=== PATIENT | female | born 1965 | race Caucasian/White ===

== ENCOUNTER 2016-10-22 10:03 | Observation (INO) | payer OTHER ==
[~2016-10-22] VITALS: Ht 162.6 cm; Wt 68.0 kg
[~2016-10-22 10:03] MED LIST: ALBUAER19 INH; AMIT75TA2 PO; BUT/APAP/CAF PO; CHOL200010 PO; CIPR-255 PO; DRGTP25 TD; KLN1X PO; LAMO25TA PO; LPT/20 PO; OXYC1TAB3 PO; PRT/40 PO; TIZA2CAP PO; ZLF/100 PO
[2016-10-22 10:28] LABS: HEMATOCRIT 44.6 % (37-47); MEAN CELL VOLUME 91.6 fL (80-100); MEAN CORPUSCULAR HEMOGLOBIN 30.2 pg (25-34); MEAN PLATELET VOLUME 10.1 fL (7.4-10.4); PLATELET COUNT 232 K/uL (130-400); RED BLOOD COUNT 4.87 M/uL (4.2-5.4); WHITE BLOOD COUNT 8.15 K/uL (4.8-10.8)
[2016-10-22 10:38] LABS: PARTIAL THROMBOPLASTIN RATIO 1.1; PROTHROMBIN TIME (PATIENT) 10.9 SECONDS (9.0-12.0)
[2016-10-22] MEDS ORDERED: VNTHFA/IN INH (10:42)
[2016-10-22] MEDS ORDERED: RIZA10TA18 PO (10:42)
[2016-10-22] MEDS ORDERED: FNTTP25 TOP (10:42)
[2016-10-22] MEDS ORDERED: ACETAMINOPHEN 500 MG TAB PO STA (10:42)
[2016-10-22] MEDS ORDERED: BACL1TAB PO (10:42)
[2016-10-22 10:48] LABS: ALT/SGPT 19 U/L (12-78); AST/SGOT 19 U/L (15-37); BLOOD UREA NITROGEN 11 mg/dl (7-18); BUN/CREATININE RATIO 14.2 (10-20); CALCIUM 9.4 mg/dl (8.5-10.1); CARBON DIOXIDE 28 mmol/L (21-32); CHLORIDE 107 mmol/L (98-107); CREATININE 0.77 mg/dl (0.60-1.20); GLUCOSE 93 mg/dl (70-99); POTASSIUM 4.2 mmol/L (3.5-5.1); SODIUM 140 mmol/L (136-145)
[2016-10-22 10:52] LABS: ALB/GLOB RATIO 0.9 (0.9-2); ALKALINE PHOSPHATASE 123 U/L (45-117)
[2016-10-22] MEDS ORDERED: OXYCODONE HCL IR 5 MG TAB (IMMEDIATE RELEASE) PO STA (10:55)
--- NOTE | 2016-10-22 11:18 | DIAGNOSTIC IMAGING REPORT ---
SINGLE VIEW CHEST CLINICAL HISTORY: Atypical chest pain. FINDINGS: An AP, portable, upright chest radiograph is obtained compared to study dated to. The examination is degraded by portable technique and patient rotation. The heart is top normal for projection and there is atherosclerotic calcification of the thoracic aorta. Linear atelectasis is seen at the left lung base. No airspace consolidation is typical for pneumonia and there is no large pleural effusion. No pneumothorax is seen. The skeletal structures are osteopenic. The bony thorax is grossly intact. IMPRESSION: Linear atelectasis is present at the left lung base. The lungs are otherwise clear. Electronically signed by: Angel Millard M.D. 10/22/2016 10:58 AM Dictated Date/Time: 10/22/2016 10:55 AM
[2016-10-22] MEDS ORDERED: ALUMINUM/MAGNESIUM/SIMETH (MAALOX MAX) 30 ML UDC PO PRN (12:15)
[2016-10-22] MEDS ORDERED: ONDANSETRON INJ 2 MG/ML 2 ML VIAL IV PRN (12:15)
[2016-10-22] MEDS ORDERED: ALBUTEROL HFA 8 GM INHALER INH PRN (12:15)
[2016-10-22] MEDS ORDERED: RIZATRIPTAN BENZOATE 10 MG TAB PO PRN (12:15)
[2016-10-22] MEDS ORDERED: ACETAMINOPHEN 325 MG TAB PO PRN (12:15)
[2016-10-22] MEDS ORDERED: NITROGLYCERIN 0.4 MG SL PER TAB CHARGE SL PRN (12:15)
[2016-10-22] MEDS ORDERED: MoRPHine SULFATE 2 MG/ML CARP IV PRN (12:15)
[2016-10-22] MEDS ORDERED: MAGNESIUM HYDROXIDE SUSP 30 ML UDC PO PRN (12:15)
--- NOTE | 2016-10-22 12:27 | History and Physical ---
History & Physical Date & Time of Service: Oct 22, 2016 at 12:19 Chief Complaint: Chest Pain Primary Care Physician: Isa Garcia C.R.N.P History of Present Illness Source: patient, family 51-year-old female who presented to her physician's office for evaluation of left ankle pain, during the visit she was described chest pain which been present for a few days, worsened with activity, with risk factors of tobacco use dyslipidemia and postmenopausal state. An EKG in the family care doctor's office showed a minor change in the V leads and she was given nitroglycerin which produced a headache. She was referred to the emergency department by ambulance, she had no chest pain in the ER and EKG had now normalized. Her initial evaluation ER is unrevealing however her story is confounded by recent treatment for bronchitis with azithromycin. She however states that this chest discomfort although pleuritic does also occur at rest and was associated with diaphoresis, a feeling of a gas bubble, but not associated with radiation or particularly making her breathing worse. Past Medical/Surgical History Medical Problems: (1) Fibromyalgia Status: Chronic Surgical Problems: (1) S/P hysterectomy Status: Resolved (2) S/P tubal ligation Status: Resolved Family History Cancer Diabetes mellitus FH: atrial fibrillation FHx: gallbladder disease FHx: lung disease Hypertension Kidney disease Mitral valve prolapse Social History Smoking Status: Current Every Day Smoker Alcohol Use: none Drug Use: other (patient uses fentanyl patch) Marital Status: Housing status: lives with family Occupational Status: unemployed Immunizations History of Influenza Vaccine: Yes Influenza Vaccine Date: Mar 14, 2010 History of Tetanus Vaccine?: Yes Tetanus Immunization Date: Jun 14, 2004 History of Pneumococcal: No History of Hepatitis B Vaccine: Unknown Hepatitis Immunization Date: Mar 14, 2006 Multi-Drug Resistant Organisms History of MDRO: Yes Type of MDRO: MRSA Allergies Coded Allergies: Chlorhexidine (Verified Allergy, Intermediate, rash, 10/22/16) Gabapentin (Verified Allergy, Intermediate, SWELLS UP ALL OVER MANILY LEGS AND HANDS, 10/22/16) Topiramate (Verified Allergy, Intermediate, KIDNEY STONES, 10/22/16) Aspirin (Verified Allergy, Mild, HIVES, 10/22/16) Cephalexin (Verified Adverse Reaction, Mild, NAUSEA AND VOMITING, 10/22/16) Ibuprofen (Verified Adverse Reaction, Mild, DIARRHEA, 10/22/16) Metronidazole (Verified Adverse Reaction, Mild, VOMITING, 10/22/16) Home Medications Scheduled Albuterol Hfa (Ventolin Hfa), 2 PUFFS INH Q6H Amitriptyline Hcl (Elavil), 75 MG PO HS Atorvastatin (Atorvastatin Calcium), 20 MG PO QPM Baclofen (Lioresal), 10 MG PO BID Cholecalciferol (Vitamin D), 2,000 CAP PO QAM Clonazepam (Clonazepam), 1 MG PO HS Fentanyl (Fentanyl), 25 MCG TOP Q2D Pantoprazole (Pantoprazole Sodium), 40 MG PO QPM Sertraline HCl (Sertraline HCl), 250 MG PO HS Scheduled PRN Oxycodone Immediate Rel Tab (Roxicodone Ir), 10 MG PO TID PRN for Pain Miscellaneous Medications Rizatriptan Benzoate (Maxalt), 10 MG PO Review of Systems ROS: well nourished well developed NC/AT PERRL EOMI Sclera normal, she does have a headache which is likely from her nitroglycerin Neck no JVD, no adenopathy, trachea midline Car is regular without murmur Lungs are clear no focal air loss, no cough, no rub bed pain is worsened with deep breath Abd is soft non tender normal bowel sounds Extremity, no edema no cyanosis, her left ankle has pain in the mid foot after walking Skin no rash or lesions Neuro Alert and oriented X3 no focal loss of strength or sensation upper or lower extremity Psyche no anxiety or depression, but she is concerned about continuing her psych meds Physical Exam Vital Signs Date Time Temp Pulse Resp B/P (MAP) Pulse Ox O2 Delivery O2 Flow Rate FiO2 10/22/16 12:15 75 14 97 10/22/16 12:10 76 20 98 10/22/16 12:05 77 17 98 10/22/16 12:01 137/84 10/22/16 12:00 80 17 97 10/22/16 11:55 77 17 96 10/22/16 11:50 74 19 97 10/22/16 11:45 75 14 98 10/22/16 11:40 71 15 97 10/22/16 11:35 72 19 97 10/22/16 11:31 119/67 10/22/16 11:30 76 14 98 10/22/16 11:26 138/76 10/22/16 11:25 72 19 97 10/22/16 11:20 72 16 99 10/22/16 11:15 68 15 97 10/22/16 11:05 74 16 96 10/22/16 11:01 127/81 10/22/16 11:00 79 22 95 10/22/16 10:57 75 14 128/83 96 Room Air 10/22/16 10:34 90 10/22/16 10:11 96 Room Air 10/22/16 10:11 97 10/22/16 10:11 37.0 96 20 122/75 97 Room Air General Appearance: WD/WN, no apparent distress Head: normocephalic, atraumatic Eyes: PERRL, EOMI ENT: hearing grossly normal, pharynx normal Neck: supple, trachea midline Respiratory/Chest: chest non-tender, lungs clear, normal breath sounds, + pertinent finding (limited by discomfort) Cardiovascular: regular rate, rhythm, no murmur Abdomen/GI: normal bowel sounds, non tender, soft Back: normal inspection, no CVA tenderness Extremities/Musculoskelatal: no pedal edema, normal range of motion, + pertinent finding (evaluation of her left ankle reveals no instability joint effusion or focal point tenderness) Neurologic/Psych: alert, oriented x 3 Skin: normal color, warm/dry Diagnostics Laboratory Results Results Past 24 Hours Test 10/22/16 09:58 10/22/16 10:23 10/22/16 10:59 Range/Units White Blood Count 8.15 4.8-10.8 K/uL Red Blood Count 4.87 4.2-5.4 M/uL Hemoglobin 14.7 12.0-16.0 g/dL Hematocrit 44.6 37-47 % Mean Corpuscular Volume 91.6 80-100 fL Mean Corpuscular Hemoglobin 30.2 25-34 pg Mean Corpuscular Hemoglobin Concent 33.0 32-36 g/dl RDW Standard Deviation 44.9 36.4-46.3 fL RDW Coefficient of Variation 13.4 11.5-14.5 % Platelet Count 232 130-400 K/uL Mean Platelet Volume 10.1 7.4-10.4 fL Prothrombin Time 10.9 9.0-12.0 SECONDS Prothromb Time International Ratio 1.0 0.9-1.1 Activated Partial Thromboplast Time 27.9 21.0-31.0 SECONDS Partial Thromboplastin Ratio 1.1 Sodium Level 140 136-145 mmol/L Potassium Level 4.2 3.5-5.1 mmol/L Chloride Level 107 98-107 mmol/L Carbon Dioxide Level 28 21-32 mmol/L Anion Gap 5.0 3-11 mmol/L Blood Urea Nitrogen 11 7-18 mg/dl Creatinine 0.77 0.60-1.20 mg/dl Est Creatinine Clear Calc Drug Dose 82.0 ml/min Estimated GFR () 104.3 Estimated GFR (Non- 90.0 BUN/Creatinine Ratio 14.2 10-20 Random Glucose 93 70-99 mg/dl Calcium Level 9.4 8.5-10.1 mg/dl Total Bilirubin 0.2 0.2-1 mg/dl Aspartate Amino Transf (AST/SGOT) 19 15-37 U/L Alanine Aminotransferase (ALT/SGPT) 19 12-78 U/L Alkaline Phosphatase 123 45-117 U/L Total Creatine Kinase 66 26-192 U/L Creatine Kinase MB < 0.5 0.5-3.6 ng/ml Creatine Kinase MB Ratio 0-3.0 Total Protein 7.6 6.4-8.2 gm/dl Albumin 3.6 3.4-5.0 gm/dl Globulin 4.0 2.5-4.0 gm/dl Albumin/Globulin Ratio 0.9 0.9-2 Bedside Troponin I < 0.030 0-0.045 ng/ml Bedside D-Dimer 186 0-450 ng/mlFEU CXR normal Normal EKG (the EKG here is normal) Impression Assessment and Plan 51-year-old female with atypical chest pain and risk factors of tobacco use estrogen deficiency dyslipidemia Given some of the patient's symptoms are solution with diaphoresis. There is concern this could be coronary disease. We will pursue serial troponins, cardiac monitoring, and if negative a stress echocardiogram. Given the patient has an aspirin allergy we will choose to use Plavix as a substitute This could be pleuritic chest pain from her recent upper respiratory infection. Her d-dimer was negative which rules out pulmonary embolism Patient also has GERD and takes Protonix COPD/asthma we'll maintain her albuterol but may consider changing to Combivent in the future Anxiety/depression we will continue her sertraline at her dose of 250 although this is slightly higher than recommended, her clonazepam daily at bedtime For chronic pain she'll continue her fentanyl patch and or muscle relaxers with when necessary oxycodone use DVT prevention is heparin Patient is a full code Resuscitation Status FULL RESUSCITATION VTE Prophylaxis VTE Risk Assessment Done? Y/N: Yes Risk Level: Moderate Given or contraindicated: Unfractionated heparin SQ
[2016-10-22] MEDS ORDERED: IV FLUIDS COMPLETED PRN (12:30)
[2016-10-22] MEDS ORDERED: CLOPIDOGREL BISULFATE 75 MG TAB PO ONE (12:30)
[2016-10-22 14:30] VITALS: BP 120/72; PULSE 78; TEMP 36.6; O2SAT 97; Ht 162.6 cm; Wt 68.0 kg
[2016-10-22] MEDS: OXYCODONE HCL IR 5 MG TAB (IMMEDIATE RELEASE) PO PRN (14:57)
[2016-10-22 15:21] VITALS: BP 109/75; PULSE 77; TEMP 36.5; O2SAT 93
[2016-10-22] MEDS: CHECK FENTANYL PATCH PLACEMENT SCH (16:00)
--- NOTE | 2016-10-22 18:01 | EMERGENCY ROOM VISIT NOTE ---
History Report prepared by Shagufta: Shahnaz Lakhani Under the Supervision of: Dr. Solo Atkinson D.O. First contact with patient: 10:30 Chief Complaint: CARDIAC ASSESSMENT Stated Complaint: CHEST PAIN Nursing Triage Summary: Patient reports pain behind her left breast since Wednesday patient sent by pcp by ambulance for concerns on EKG at office. Patient has increased pain with deep breath. Patient recieved one nitro at Physician office with no relief, patient on arrival asking for pain medication for her headache. History of Present Illness The patient is a 51 year old female who presents to the Emergency Room with complaints of severe chest pain starting four days ago. The patient reports that she feels like there is an elephant sitting on her chest. She reports that she assumed the chest pain was from her cough that she has had and that it felt better when she lay down. She states that she went to her PCP today for something wrong with her feet. She reports that the PCP asked if anything else was wrong and she told them about her chest pain. She states that they performed an EKG that appeared abnormal and was sent here to the ED because of it. The patient notes that she is short of breath and has a headache. She denies nausea, vomiting, and swelling or pain in legs. She notes that she has never had issues with her heart before. Source of History: patient Onset: four days ago Position: chest Quality: other ("elephant sitting on chest") Modifying Factors (Relieving): other (laying down) Associated Symptoms: + headache, + cough, + SOB, No nausea, No vomiting Note: The patient denies swelling and pain in her legs. Review of Systems See HPI for pertinent positives & negatives. A total of 10 systems reviewed and were otherwise negative. Past Medical & Surgical Medical Problems: (1) Chest pain (2) Fibromyalgia Surgical Problems: (1) S/P hysterectomy (2) S/P tubal ligation Family History Cancer Diabetes mellitus FHx: gallbladder disease FHx: lung disease Hypertension Kidney disease Social History Smoking Status: Former Smoker Alcohol Use: none Marital Status: Housing Status: lives with family Occupation Status: unemployed Current/Historical Medications Scheduled Albuterol Hfa (Ventolin Hfa), 2 PUFFS INH Q6H Amitriptyline Hcl (Elavil), 75 MG PO HS Atorvastatin (Atorvastatin Calcium), 20 MG PO QPM Baclofen (Lioresal), 10 MG PO BID Cholecalciferol (Vitamin D), 2,000 CAP PO QAM Clonazepam (Clonazepam), 1 MG PO HS Fentanyl (Fentanyl), 25 MCG TOP Q2D Pantoprazole (Pantoprazole Sodium), 40 MG PO QPM Sertraline HCl (Sertraline HCl), 250 MG PO HS Scheduled PRN Oxycodone Immediate Rel Tab (Roxicodone Ir), 10 MG PO TID PRN for Pain Miscellaneous Medications Rizatriptan Benzoate (Maxalt), 10 MG PO Allergies Coded Allergies: Chlorhexidine (Verified Allergy, Intermediate, rash, 10/22/16) Gabapentin (Verified Allergy, Intermediate, SWELLS UP ALL OVER MANILY LEGS AND HANDS, 10/22/16) Topiramate (Verified Allergy, Intermediate, KIDNEY STONES, 10/22/16) Aspirin (Verified Allergy, Mild, HIVES, 10/22/16) Cephalexin (Verified Adverse Reaction, Mild, NAUSEA AND VOMITING, 10/22/16) Ibuprofen (Verified Adverse Reaction, Mild, DIARRHEA, 10/22/16) Metronidazole (Verified Adverse Reaction, Mild, VOMITING, 10/22/16) Physical Exam Vital Signs Date Time Temp Pulse Resp B/P (MAP) Pulse Ox O2 Delivery O2 Flow Rate FiO2 10/22/16 12:05 77 17 98 10/22/16 12:01 137/84 10/22/16 12:00 80 17 97 10/22/16 11:55 77 17 96 10/22/16 11:50 74 19 97 10/22/16 11:45 75 14 98 10/22/16 11:40 71 15 97 10/22/16 11:35 72 19 97 10/22/16 11:31 119/67 10/22/16 11:30 76 14 98 10/22/16 11:26 138/76 10/22/16 11:25 72 19 97 10/22/16 11:20 72 16 99 10/22/16 11:15 68 15 97 10/22/16 11:05 74 16 96 10/22/16 11:01 127/81 10/22/16 11:00 79 22 95 10/22/16 10:57 75 14 128/83 96 Room Air 10/22/16 10:34 90 10/22/16 10:11 96 Room Air 10/22/16 10:11 97 10/22/16 10:11 37.0 96 20 122/75 97 Room Air Physical Exam GENERAL: Patient is awake, alert, and in no acute distress. Patient is resting comfortably and showing no signs of anxiety EYES: The conjunctivae are clear. The pupils are round and reactive. EARS, NOSE, MOUTH AND THROAT: The nose is without any evidence of any deformity. Mucous membranes are moist tongue is midline NECK: The neck is nontender and supple. RESPIRATORY: Normal respiratory effort is noted there is no evidence of wheezing or rhonchi. Rakes at left base, no tachypnea or dyspnea noted. CARDIOVASCULAR: Regular rate and rhythm noted there no murmurs rubs or gallops normal S1 normal S2 GASTROINTESTINAL: The abdomen is soft. Bowel sounds are present in all quadrants. Abdomen is nontender MUSCULOSKELETAL/EXTREMITIES: There is no evidence of gross deformity full range of motion is noted in the hips and shoulders SKIN: There is no obvious evidence of any rash. There are no petechiae, pallor or cyanosis noted. NEUROLOGIC: Patient is awake alert and oriented x3 strength is symmetric patellar reflexes are 2+ bilaterally Medical Decision & Procedures ER Provider Diagnostic Interpretation: Radiology results as stated below per my review and radiologist interpretation: SINGLE VIEW CHEST CLINICAL HISTORY: Atypical chest pain. FINDINGS: An AP, portable, upright chest radiograph is obtained compared to study dated to. The examination is degraded by portable technique and patient rotation. The heart is top normal for projection and there is atherosclerotic calcification of the thoracic aorta. Linear atelectasis is seen at the left lung base. No airspace consolidation is typical for pneumonia and there is no large pleural effusion. No pneumothorax is seen. The skeletal structures are osteopenic. The bony thorax is grossly intact. IMPRESSION: Linear atelectasis is present at the left lung base. The lungs are otherwise clear. Electronically signed by: Angel Millard M.D. 10/22/2016 10:58 AM Dictated Date/Time: 10/22/2016 10:55 AM Laboratory Results 10/22/16 09:58 10/22/16 09:58 Test 10/22/16 09:58 10/22/16 10:23 10/22/16 10:59 Red Blood Count 4.87 M/uL (4.2-5.4) Mean Corpuscular Volume 91.6 fL (80-100) Mean Corpuscular Hemoglobin 30.2 pg (25-34) Mean Corpuscular Hemoglobin Concent 33.0 g/dl (32-36) RDW Standard Deviation 44.9 fL (36.4-46.3) RDW Coefficient of Variation 13.4 % (11.5-14.5) Mean Platelet Volume 10.1 fL (7.4-10.4) Prothrombin Time 10.9 SECONDS (9.0-12.0) Prothromb Time International Ratio 1.0 (0.9-1.1) Activated Partial Thromboplast Time 27.9 SECONDS (21.0-31.0) Partial Thromboplastin Ratio 1.1 Anion Gap 5.0 mmol/L (3-11) Est Creatinine Clear Calc Drug Dose 82.0 ml/min Estimated GFR () 104.3 Estimated GFR (Non- 90.0 BUN/Creatinine Ratio 14.2 (10-20) Calcium Level 9.4 mg/dl (8.5-10.1) Total Bilirubin 0.2 mg/dl (0.2-1) Aspartate Amino Transf (AST/SGOT) 19 U/L (15-37) Alanine Aminotransferase (ALT/SGPT) 19 U/L (12-78) Alkaline Phosphatase 123 U/L (45-117) Total Creatine Kinase 66 U/L (26-192) Creatine Kinase MB < 0.5 ng/ml (0.5-3.6) Creatine Kinase MB Ratio (0-3.0) Total Protein 7.6 gm/dl (6.4-8.2) Albumin 3.6 gm/dl (3.4-5.0) Globulin 4.0 gm/dl (2.5-4.0) Albumin/Globulin Ratio 0.9 (0.9-2) Bedside Troponin I < 0.030 ng/ml (0-0.045) Bedside D-Dimer 186 ng/mlFEU (0-450) Laboratory results per my review. Medications Administered Medications (Trade) Dose Ordered Sig/Julian Route Start Time Stop Time Status Last Admin Dose Admin Oxycodone HCl (Roxicodone Immediate Rel Tab) 10 mg NOW STAT PO 10/22/16 10:55 10/22/16 10:56 DC 10/22/16 11:06 10 MG ECG Indication: chest pain Rate (beats per minute): 82 Rhythm: normal sinus Findings: T-wave inversion (Anterior), no ectopy, other (No acute ST segments) Comparison ECG Date: July 17, 2014 Change: no significant change ED Course 1030: The patient was evaluated in room B10. A complete history and physical examination were performed. 1042: Ordered Tylenol Tab 1000 mg PO. 1055: Ordered Oxycodone HCl 10 mg PO. 1140: I discussed the patient's case with Dr. Chang. The patient will be evaluated for further management. Medical Decision Medication Reconciliation: I attest that I have personally reviewed the patient' s current medications list. .Blood pressure screening: Patient was found to have normal blood pressure on screening and does not require follow-up. Differential diagnosis: Etiologies such as cardiac ischemia, aortic dissection, pulmonary embolism, pneumonia, pneumothorax, musculoskeletal, infections, pericarditis, myocarditis , esophageal rupture, gastrointestinal, as well as others were entertained. The patient is a 51-year-old female who presented to emergency department for an evaluation of chest discomfort. Initially she was seen by her primary care physician and was found have an abnormal EKG. She was sent to the emergency department. The patient's EKG appeared similar to previous. Her initial cardiac biomarkers are negative. I discussed her case with the on-call [facility] hospitalist. They've agreed to evaluate the patient in the emergency department for further management and disposition. Consults Time Called: [phone] Consulting Physician: Dr. Chang Returned Call: 1140 I discussed the patient's case with Dr. Chang. The patient will be evaluated for further management. Impression Primary Impression: Chest pain Additional Impression: Abnormal EKG Scribe Attestation The scribe's documentation has been prepared under my direction and personally reviewed by me in its entirety. I confirm that the note above accurately reflects all work, treatment, procedures, and medical decision making performed by me. Departure Information Dispostion Being Evaluated By Hospitalist Referrals Isa Garcia C.R.N.P (PCP) Patient Instructions My [facility] Problem Qualifiers
[2016-10-22 19:36] VITALS: BP 118/76; PULSE 79; TEMP 36.7; O2SAT 97
[2016-10-22] MEDS ORDERED: SERTRALINE HCL 100 MG TAB PO SCH (21:00)
[2016-10-22] MEDS ORDERED: ATORVASTATIN 20 MG TAB PO SCH (21:00)
[2016-10-22] MEDS ORDERED: SERTRALINE HCL 50 MG TAB PO SCH (21:00)
[2016-10-22] MEDS ORDERED: AMITRIPTYLINE HCL 25 MG TAB PO SCH (21:00)
[2016-10-22] MEDS ORDERED: CLONAZEPAM 1 MG TAB PO SCH (21:00)
[2016-10-22] MEDS ORDERED: PANTOprazole SOD 40 MG TAB PO SCH (21:00)
[2016-10-22] MEDS: BACLOFEN 10 MG TAB PO SCH (21:21)
[2016-10-22] MEDS: HEPARIN SOD 5000 UNIT/0.5 ML CARP SQ SCH (21:22)
[2016-10-22 23:03] VITALS: BP 107/69; PULSE 68; TEMP 36.5; O2SAT 97
[2016-10-23] MEDS: CHECK FENTANYL PATCH PLACEMENT SCH ×2 (00:18→07:49)
[2016-10-23 02:58] LABS: BLOOD UREA NITROGEN 15 mg/dl (7-18); BUN/CREATININE RATIO 17.1 (10-20); CARBON DIOXIDE 28 mmol/L (21-32); CHLORIDE 110 mmol/L (98-107); CREATININE 0.87 mg/dl (0.60-1.20); GLUCOSE 103 mg/dl (70-99); POTASSIUM 3.8 mmol/L (3.5-5.1); SODIUM 144 mmol/L (136-145)
[2016-10-23 03:22] VITALS: BP 104/66; PULSE 60; TEMP 36.5; O2SAT 97
[2016-10-23 03:31] LABS: CALCIUM 9.1 mg/dl (8.5-10.1)
[2016-10-23 07:06] VITALS: BP 113/73; PULSE 67; TEMP 36.6; O2SAT 99
[2016-10-23] MEDS: BACLOFEN 10 MG TAB PO SCH (07:49)
[2016-10-23] MEDS: OXYCODONE HCL IR 5 MG TAB (IMMEDIATE RELEASE) PO PRN (08:00)
[2016-10-23] MEDS: HEPARIN SOD 5000 UNIT/0.5 ML CARP SQ SCH (08:00)
[2016-10-23] MEDS ORDERED: FENTANYL PATCH REMOVE & WASTE SCH (08:59)
[2016-10-23] MEDS ORDERED: CLOPIDOGREL BISULFATE 75 MG TAB PO SCH (09:00)
[2016-10-23] MEDS ORDERED: FENTANYL 25 MCG/HR TDSY TD SCH (09:00)
[2016-10-23] MEDS ORDERED: LAMO100T16 PO (10:46)
--- NOTE | 2016-10-23 10:49 | Discharge Instructions ---
Discharge Instructions Date of Service Oct 23, 2016. Admission Reason for Admission: Chest Pain Discharge Discharge Diagnosis / Problem: Chest pain, negative stress test Discharge Goals Goal(s): Decrease discomfort, Improve function Activity Recommendations Activity Limitations: resume your previous activity Lifting Limitations: none Exercise/Sports Limitations: as tolerated May Resume Sexual Activity: when tolerated Shower/Bathe: no limitations Driving or Machine Use: no limitations . Instructions / Follow-Up Instructions / Follow-Up Medications: no changes Chest pain - negative work up for heart attack (negative heart enzymes) and negative stress echocardiogram today D dimer normal thus ruling out possibility of blood clot symptoms most likely related to coughing with recent bronchitis FOLLOW UP - as needed with primary care physician, if chest pain persists can follow up Current Hospital Diet Patient's current hospital diet: Regular Diet Discharge Diet Recommended Diet: AHA Diet (Heart Healthy) Procedures Procedures Performed: Exercise stress echocardiogram - normal Pending Studies Studies pending at discharge: no Laboratory Results Last Resulted CBC 10/22/16 09:58 Medical Emergencies . Who to Call and When: Medical Emergencies: If at any time you feel your situation is an emergency, please call 911 immediately. . Non-Emergent Contact Non-Emergency issues call your: Primary Care Provider Call Non-Emergent contact if: your pain is not controlled, your pain is worsening, you have any medication questions . . "Provider Documentation" section prepared by Surendra Daniels. . VTE Core Measure Inpt VTE Proph given/why not?: Unfractionated heparin SQ [place] Drug Monitoring Program Search Results: no issues identified
[2016-10-23 10:55] VITALS: BP 113/73; PULSE 67; TEMP 36.6; O2SAT 99
[2016-10-23 11:27] VITALS: BP 131/78; PULSE 78; TEMP 36.6; O2SAT 95
--- NOTE | 2016-10-23 15:51 | DOBUTAMINE ECHO ---
*NOTICE TO RECEIVING [employer] This information is strictly Confidential and protected under [place] law. [place] law prohibits you from making any further disclosure of this information unless further disclosure is expressly permitted by the written consent of the person to whom it pertains or is authorized by law. A general authorization for the release of medical or other information is not sufficient for this purpose. Hospital accepts no responsibility if the information is made available to any other person, INCLUDING THE PATIENT. Interpretation Summary * Name: ANA WELSH Study Date: 10/23/2016 08:37 AM BP: 127/71 mmHg * Patient Location: C.2T\S\S232\S\1 HR: 67 * : 1965 (M/d/yyyy) Gender: Female Height: 64 in * Age: 51 yrs Ethnicity: CA Weight: 146 lb * Ordering Physician: Jeremiah Chang * Referring Physician: Isa Garcia * Performed By: Sheryl Mckinnon RDCS * * Reason For Study: CHEST PAIN * BSA: 1.7 m2 * -- Conclusions -- * 1. Normal stress echocardiogram at 7.1 Mets and a peak heart of 87% predicted maximum. * 2. No exercise-induced chest pain. * 3. No EKG changes. * 4. Baseline echocardiogram notes normal left ventricular systolic function without wall motion abnormalities. Procedure Details * ECHOEX, CPT #56802 Left Ventricle * The left ventricle is normal in size. * There is borderline concentric left ventricular hypertrophy. * Ejection Fraction = 55-60%. * Left ventricular systolic function is normal. * Resting wall motion: Normal. Stress wall motion: Appropriate increase in Left ventricular systolic function and decrease in cavity size. No stress induced segmental wall motion abnormalities. Right Ventricle * The right ventricle is grossly normal size. * The right ventricular systolic function is normal as assessed by tricuspid annular plane systolic excursion (TAPSE) (normal >1.5 cm). Atria * The left atrial size is normal. * Right atrial size is normal. * No ASD detected; PFO is not assessed. Mitral Valve * The mitral valve is normal in structure and function. * There is no mitral valve stenosis. * Significant mitral regurgitation is absent. Tricuspid Valve * The tricuspid valve is normal in structure and function. * There is no tricuspid stenosis. * Significant tricuspid regurgitation is absent. Aortic Valve * The aortic valve is normal in structure and function. * No hemodynamically significant valvular aortic stenosis. * No aortic regurgitation is present. Pulmonic Valve * The pulmonary valve is not well seen, but the Doppler examination is normal without significant regurgitation or stenosis. Great Vessels * The aortic root is normal size. Pericardium * There is no pericardial effusion. Stress Parameters * Normal baseline electrocardiogram. * Stress ECG: No ST changes. No arrhythmias. * The stress portion of this study was personally supervised by the undersigned interpreting physician. * Rest heart rate was '67' BPM. * Rest blood pressure was '127/71' * Maximum heart rate achieved was 148 bpm. * Maximum heart rate was 87 % of maximum age-predicted heart rate. * Maximum blood pressure was '169/83' * Total exercise time was '6:06' * Maximum exercise MET level achieved was '7.10' METS * Maximum treadmill speed was '3.40' miles per hour. * Maximum treadmill elevation was '14.00'% grade. * Exercise was terminated due to 'REACHING TARGET HR' MMode 2D Measurements and Calculations IVSd 1.0 cm IVSs 1.5 cm LVIDd 4.5 cm LVIDs 3.1 cm LVPWd 1.0 cm LVPWs 1.5 cm IVS/LVPW 1.0 FS 29.6 % EDV(Teich) 91.1 ml ESV(Teich) 39.3 ml EF(Teich) 56.8 % EDV(cubed) 89.4 ml ESV(cubed) 31.1 ml EF(cubed) 65.2 % % IVS thick 43.4 % % LVPW thick 48.0 % LV mass(C)d 158.4 grams LV mass(C)dI 92.6 grams/m\S\2 LV mass(C)s 168.4 grams LV mass(C)sI 98.4 grams/m\S\2 SV(Teich) 51.8 ml SI(Teich) 30.3 ml/m\S\2 SV(cubed) 58.3 ml SI(cubed) 34.1 ml/m\S\2 Ao root diam 3.2 cm Ao root area 7.8 cm\S\2 LA dimension 3.3 cm LA/Ao 1.0 LVAd ap4 27.0 cm\S\2 LVLd ap4 8.2 cm EDV(MOD-sp4) 74.4 ml LVAs ap4 15.8 cm\S\2 LVLs ap4 6.8 cm ESV(MOD-sp4) 31.8 ml EF(MOD-sp4) 57.3 % LVAd ap2 23.3 cm\S\2 LVLd ap2 7.4 cm EDV(MOD-sp2) 62.7 ml LVAs ap2 14.3 cm\S\2 LVLs ap2 6.4 cm ESV(MOD-sp2) 29.0 ml EF(MOD-sp2) 53.7 % SV(MOD-sp4) 42.6 ml SI(MOD-sp4) 24.9 ml/m\S\2 SV(MOD-sp2) 33.7 ml SI(MOD-sp2) 19.7 ml/m\S\2 Doppler Measurements and Calculations MV E max tessie 64.4 cm/sec MV A max tessie 48.3 cm/sec MV E/A 1.3 MV dec time 0.26 sec Ao V2 max 123.8 cm/sec Ao max PG 6.1 mmHg Ao max PG (full) 2.9 mmHg LV V1 max PG 3.3 mmHg LV V1 max 90.4 cm/sec TR max tessie 231.3 cm/sec
--- NOTE | 2016-10-24 07:10 | Discharge Summary ---
Discharge Summary Date of Service October 23, 2016. Discharge Summary Admission Date: Oct 22, 2016 at 12:08 Discharge Date: Oct 23, 2016 Discharge Disposition: Home Principal Diagnosis: Chest pain, non-cardiac Problems/Secondary Diagnoses: Asthma Anxiety Depression Immunizations: Have You Had Influenza Vaccine: Yes Influenza Vaccine Date: Mar 14, 2010 History of Tetanus Vaccine?: Yes Tetanus Immunization Date: Jun 14, 2004 History of Pneumococcal: No History of Hepatitis B Vaccine: Unknown Hepatitis Immunization Date: Mar 14, 2006 Procedures: Exercise stress echocardiogram Consultations: none Medication Reconciliation New Medications: Lamotrigine (Lamictal) 100 Mg Tab 100 MG PO BID for 30 Days, #60 TAB Continued Medications: Albuterol Hfa (Ventolin Hfa) 200 Puffs/71778 Mcg Aers 2 PUFFS INH Q6H, #1 INHALER Amitriptyline Hcl (Elavil) 75 Mg Tab 75 MG PO HS, TAB Atorvastatin (Atorvastatin Calcium) 20 Mg Tab 20 MG PO QPM, #90 Baclofen (Lioresal) 10 Mg Tab 10 MG PO BID, TAB Cholecalciferol (Vitamin D) 2,000 Unit Cap 2000 CAP PO QAM Clonazepam (Clonazepam) 1 Mg Tab 1 MG PO HS, #60 Fentanyl (Fentanyl) 25 Mcg Tdsy 25 MCG TOP Q2D Oxycodone Immediate Rel Tab (Roxicodone Ir) 5 Mg Tab 10 MG PO TID PRN for Pain, TAB Pantoprazole (Pantoprazole Sodium) 40 Mg Tab 40 MG PO QPM, #30 Rizatriptan Benzoate (Maxalt) 10 Mg Tab 10 MG PO, TAB Sertraline HCl (Sertraline HCl) 100 Mg Tab 250 MG PO HS, #90 Discharge Exam Patient was feeling much better in the morning prior to her stress test, no chest pain or pressure, no dyspnea. Her exercise stress echocardiogram was negative for ischemia. Discussed her symptoms of chest tightness the prior week. They improved with albuterol, suggested that it was more likely bronchospasm related to her asthma. She felt ready to go home. Review of Systems: Constitutional: No fever, No chills, No sweats, No weight loss, No weakness , No fatigue, No problem reported Eyes: No worsening of vision, No eye pain, No redness, No discharge, No diplopia, No problem reported Respiratory: No cough, No sputum, No wheezing, No shortness of breath, No dyspnea on exertion, No dyspnea at rest, No hemoptysis, No problem reported Cardiovascular: No chest pain, No orthopnea, No PND, No edema, No claudication, No palpitations, No problem reported Abdomen: No pain, No nausea, No vomiting, No diarrhea, No constipation, No GI bleeding, No problem reported Musculoskeletal: No joint pain, No muscle pain, No swelling, No calf pain, No problem reported Genitourinary - Female: No dysuria, No urinary frequency, No urinary urgency , No urinary incontinence, No urinary retention, No hematuria Neurologic: No memory loss, No paralysis, No weakness, No numbness/tingling , No vertigo, No balance problems, No problem reported Psychiatric: No depression symptoms, No anhedonism, No anxiety, No insomnia , No substance abuse, No problem reported Endocrine: No fatigue, No excessive thirst, No excessive urination, No problem reported Hematologic / Lymphatic: No abnormal bleeding/bruising, No clotting problems , No swollen lymph nodes, No night sweats, No problem reported Integumentary: No rash, No itch, No new/changing skin lesions, No color change, No bleeding, No problem reported Physical Exam: General Appearance: WD/WN, no apparent distress Eyes: normal inspection, EOMI, sclerae normal ENT: normal ENT inspection, hearing grossly normal, pharynx normal Neck: supple, no adenopathy, no JVD, trachea midline Respiratory/Chest: chest non-tender, lungs clear, normal breath sounds, no respiratory distress, no accessory muscle use Cardiovascular: regular rate, rhythm, no edema, no gallop, no JVD, no murmur , normal peripheral pulses Abdomen / GI: normal bowel sounds, non tender, soft, no organomegaly Extremities: normal inspection, no calf tenderness, normal capillary refill , no pedal edema, normal range of motion 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, no motor/sensory deficits , alert, normal mood/affect, normal reflexes, oriented x 3 Skin: normal color, warm/dry, no rash Hospital Course 51-year-old female with atypical chest pain and risk factors of tobacco use estrogen deficiency dyslipidemia - Chest pain and tightness: no symptoms while admitted, her troponin was negative x 3 exercise stress echocardiogram was normal discussed her symptoms, sounded more like some chest tightness associated with asthma, they occurred outside in her garden, improved with albuterol COPD/asthma: continue Albuterol PRN, can follow up with PCP Anxiety/depression we will continue her sertraline at her dose of 250mg, her clonazepam daily at bedtime For chronic pain she'll continue her fentanyl patch and or muscle relaxers with when necessary oxycodone use Total Time Spent: Greater than 30 minutes This includes examination of the patient, discharge planning, medication reconciliation, and communication with other providers. Discharge Instructions Please refer to the electronic Patient Visit Report (Discharge Instructions) for additional information. Follow-Up as needed with PCP Additional Copies To Isa Garcia C.R.N.P
== END 2016-10-23 12:17 | disposition home or self-care (01) ==
LOC: EDBD 10:03 → C.EDB 10:04 → C.2T 12:08 → ENRESERV 12:39
PROVIDERS: ADMIT Internal Medicine; ATTEND Internal Medicine
DX: R07.89 Other chest pain (principal); R94.31 Abnormal electrocardiogram [ECG] [EKG]; J45.909 Unspecified asthma, uncomplicated; F41.8 Other specified anxiety disorders; Z90.710 Acquired absence of both cervix and uterus; Z98.51 Tubal ligation status; Z87.891 Personal history of nicotine dependence; Z79.899 Other long term (current) drug therapy; Z80.3 Family history of malignant neoplasm of breast; Z83.3 Family history of diabetes mellitus; Z82.49 Family history of ischemic heart disease and other diseases of the circulatory system; Z84.1 Family history of disorders of kidney and ureter

== ENCOUNTER 2017-02-06 20:48 | Emergency (ER) | payer OTHER ==
[~2017-02-06] VITALS: Ht 162.6 cm; Wt 70.9 kg
[~2017-02-06 20:48] MED LIST changes: -ALBUAER19 INH; +BACL1TAB PO; -BUT/APAP/CAF PO; -CIPR-255 PO; -DRGTP25 TD; +FNTTP25 TOP; -LAMO25TA PO; +RIZA10TA18 PO; -TIZA2CAP PO; +VNTHFA/IN INH
[2017-02-06 20:50] VITALS: Ht 162.6 cm; Wt 70.9 kg
[2017-02-06] MEDS ORDERED: ONDANSETRON INJ 2 MG/ML 2 ML VIAL IV STA (21:05)
[2017-02-06] MEDS ORDERED: MoRPHine SULFATE 4 MG/ML 1 ML CARP\\VIAL IV STA ×2 (21:05→22:12)
[2017-02-06 21:27] LABS: BASO % 0.5 %; BASO ABS # 0.06 K/uL (0-0.2); COMPLETE YES; EOS % 4.5 %; HEMATOCRIT 41.5 % (37-47); IG% 0.4 %; LYMPH % 29.9 %; MEAN CELL VOLUME 91.8 fL (80-100); MEAN CORPUSCULAR HEMOGLOBIN 30.1 pg (25-34); MEAN CORPUSCULAR HGB CONC 32.8 g/dl (32-36); MEAN PLATELET VOLUME 9.9 fL (7.4-10.4); MONO % 10.7 %; PLATELET COUNT 224 K/uL (130-400); RED BLOOD COUNT 4.52 M/uL (4.2-5.4); WHITE BLOOD COUNT 11.36 K/uL (4.8-10.8)
[2017-02-06] MEDS ORDERED: AMT/50 PO (21:38)
[2017-02-06] MEDS ORDERED: LAMO1TAB21 PO (21:38)
--- NOTE | 2017-02-06 21:38 | DIAGNOSTIC IMAGING REPORT ---
SINGLE VIEW CHEST CLINICAL HISTORY: Atypical chest pain. FINDINGS: An AP, portable, upright chest radiograph is compared to study dated 10/22/2016. The examination is degraded by portable technique and patient rotation. The cardiomediastinal silhouette is unremarkable. Platelike atelectasis is seen at both lung bases. The lungs and pleural spaces are otherwise clear. No pneumothorax is seen. The bony thorax is grossly intact. IMPRESSION: No acute cardiopulmonary abnormality. Electronically signed by: Angel Millard M.D. 02/06/2017 9:37 PM Dictated Date/Time: 02/06/2017 9:37 PM
[2017-02-06 21:42] LABS: INR 0.9 (0.9-1.1); PROTHROMBIN TIME (PATIENT) 9.7 SECONDS (9.0-12.0)
[2017-02-06 21:45] LABS: POINT OF CARE TROPONIN I < 0.030 ng/ml (0-0.045)
[2017-02-06 21:47] LABS: ALT/SGPT 25 U/L (12-78); BLOOD UREA NITROGEN 8 mg/dl (7-18); BUN/CREATININE RATIO 9.4 (10-20); CALCIUM 9.1 mg/dl (8.5-10.1); CARBON DIOXIDE 28 mmol/L (21-32); CHLORIDE 108 mmol/L (98-107); CREATININE 0.89 mg/dl (0.60-1.20); GLUCOSE 102 mg/dl (70-99); SODIUM 141 mmol/L (136-145)
[2017-02-06 21:52] LABS: ALKALINE PHOSPHATASE 145 U/L (45-117); AST/SGOT 19 U/L (15-37); CKMB/CK RATIO 1.2 (0-3.0)
--- NOTE | 2017-02-06 21:52 | EMERGENCY ROOM VISIT NOTE ---
History Report prepared by Shagufta: Patty Thomas Under the Supervision of: Dr. Seferino Andrade M.D. First contact with patient: 20:57 Chief Complaint: CHEST PAIN Stated Complaint: LEFT CHEST PAIN, INDIGESTION History of Present Illness The patient is a 51 year old female who presents to the Emergency Room with complaints of persistent left sided chest pain starting tonight. The patient has had brief episodes of chest pain every 3-4 days for the past month. Today the pain is persistent. It goes through to her back. She describes the pain as sharp and shooting. The pain worsens with breathing. She has had a cough. She denies any rash, abdominal pain, leg pain, leg swelling, or fever. She had a negative stress echo in September. She has a history of fibromyalgia which does not usually give her chest pain. She denies any straining or heavy lifting. She is not on any blood thinners. Source of History: patient Onset: tonight Position: chest (left) Quality: sharp, other (shooting) Timing: other (persistent) Modifying Factors (Worsening): breathing Associated Symptoms: + cough, + back pain, No fevers, No abdominal pain, No rash Note: Pt denies leg pain/swelling. Review of Systems See HPI for pertinent positives & negatives. A total of 10 systems reviewed and were otherwise negative. Past Medical & Surgical Medical Problems: (1) Chest pain (2) Fibromyalgia Surgical Problems: (1) S/P hysterectomy (2) S/P tubal ligation Old medical records were reviewed. Nurse's notes were reviewed and I agree with. Family History Cancer Diabetes mellitus FH: atrial fibrillation FHx: gallbladder disease FHx: lung disease Hypertension Kidney disease Mitral valve prolapse Social History Smoking Status: Current Every Day Smoker Alcohol Use: none Drug Use: other Marital Status: Housing Status: lives with family Occupation Status: unemployed Current/Historical Medications Scheduled Amitriptyline HCl (Amitriptyline HCl), 50 MG PO DAILY Atorvastatin (Atorvastatin Calcium), 20 MG PO QPM Baclofen (Lioresal), 10 MG PO BID Cholecalciferol (Vitamin D), 2,000 CAP PO QAM Clonazepam (Clonazepam), 1 MG PO HS Fentanyl (Fentanyl), 25 MCG TOP Q2D Lamotrigine (Lamotrigine), 100 MG PO BID Pantoprazole (Pantoprazole Sodium), 40 MG PO QPM Sertraline HCl (Sertraline HCl), 250 MG PO HS Scheduled PRN Albuterol Hfa (Ventolin Hfa), 2 PUFFS INH Q6H PRN for SOB/Wheezing Oxycodone Immediate Rel Tab (Roxicodone Ir), 10 MG PO TID PRN for Pain Miscellaneous Medications Rizatriptan Benzoate (Maxalt), 10 MG PO Allergies Coded Allergies: Chlorhexidine (Verified Allergy, Intermediate, rash, 10/22/16) Gabapentin (Verified Allergy, Intermediate, SWELLS UP ALL OVER MANILY LEGS AND HANDS, 10/22/16) Topiramate (Verified Allergy, Intermediate, KIDNEY STONES, 10/22/16) Aspirin (Verified Allergy, Mild, HIVES, 10/22/16) Cephalexin (Verified Adverse Reaction, Mild, NAUSEA AND VOMITING, 10/22/16) Ibuprofen (Verified Adverse Reaction, Mild, DIARRHEA, 10/22/16) Metronidazole (Verified Adverse Reaction, Mild, VOMITING, 10/22/16) Physical Exam Vital Signs Date Time Temp Pulse Resp B/P (MAP) Pulse Ox O2 Delivery O2 Flow Rate FiO2 02/06/17 22:22 36.7 80 18 145/77 95 Room Air 02/06/17 21:42 86 18 134/78 95 Room Air 02/06/17 21:29 95 Room Air 02/06/17 21:11 82 02/06/17 20:50 36.9 96 18 136/88 97 Room Air Physical Exam General: Non-ill appearing middle age female in no acute distress. HEENT: Normal cephalic atraumatic. Pupils are equal round and reactive to light. Extraocular movements are intact. Oropharynx is pink with moist mucous membranes. No swelling of the mouth lips or tongue. Neck: Supple with a midline trachea. No meningeal signs or stiffness, no JVD or bruits. No Stridor. Chest: Clear to auscultation bilaterally. No wheezes or rhonchi. No increased work of breathing. Reproducible tenderness to the left anterior chest, no rash. Heart: regular rate and rhythm. Abdomen: Soft nontender, nondistended without rebound guarding or rigidity. Extremities: No cyanosis clubbing or edema. No calf tenderness or assymetry Spine/Back. Non tender to palpation. No CVA tenderness Skin: Good turgor without rashes. Neurologic exam: Cranial nerves two through 12 are intact. Motor and sensation are intact and symmetrical throughout. Medical Decision & Procedures ER Provider Diagnostic Interpretation: X-ray results as stated below per interpretation by me and the radiologist: SINGLE VIEW CHEST CLINICAL HISTORY: Atypical chest pain. FINDINGS: An AP, portable, upright chest radiograph is compared to study dated 10/22/2016. The examination is degraded by portable technique and patient rotation. The cardiomediastinal silhouette is unremarkable. Platelike atelectasis is seen at both lung bases. The lungs and pleural spaces are otherwise clear. No pneumothorax is seen. The bony thorax is grossly intact. IMPRESSION: No acute cardiopulmonary abnormality. Electronically signed by: Angel Millard M.D. 02/06/2017 9:37 PM Dictated Date/Time: 02/06/2017 9:37 PM Laboratory Results 02/06/17 21:16 Red Blood Count 4.52, Mean Corpuscular Volume 91.8, Mean Corpuscular Hemoglobin 30.1, Mean Corpuscular Hemoglobin Concent 32.8, Mean Platelet Volume 9.9, Neutrophils (%) (Auto) 54.0, Lymphocytes (%) (Auto) 29.9, Monocytes (%) (Auto) 10.7, Eosinophils (%) (Auto) 4.5, Basophils (%) (Auto) 0.5, Neutrophils # (Auto ) 6.14, Lymphocytes # (Auto) 3.40, Monocytes # (Auto) 1.21, Eosinophils # (Auto ) 0.51, Basophils # (Auto) 0.06 02/06/17 21:16 Test 02/06/17 21:16 02/06/17 21:26 White Blood Count 11.36 K/uL (4.8-10.8) Red Blood Count 4.52 M/uL (4.2-5.4) Hemoglobin 13.6 g/dL (12.0-16.0) Hematocrit 41.5 % (37-47) Mean Corpuscular Volume 91.8 fL (80-100) Mean Corpuscular Hemoglobin 30.1 pg (25-34) Mean Corpuscular Hemoglobin Concent 32.8 g/dl (32-36) Platelet Count 224 K/uL (130-400) Mean Platelet Volume 9.9 fL (7.4-10.4) Neutrophils (%) (Auto) 54.0 % Lymphocytes (%) (Auto) 29.9 % Monocytes (%) (Auto) 10.7 % Eosinophils (%) (Auto) 4.5 % Basophils (%) (Auto) 0.5 % Neutrophils # (Auto) 6.14 K/uL (1.4-6.5) Lymphocytes # (Auto) 3.40 K/uL (1.2-3.4) Monocytes # (Auto) 1.21 K/uL (0.11-0.59) Eosinophils # (Auto) 0.51 K/uL (0-0.5) Basophils # (Auto) 0.06 K/uL (0-0.2) RDW Standard Deviation 46.5 fL (36.4-46.3) RDW Coefficient of Variation 13.8 % (11.5-14.5) Immature Granulocyte % (Auto) 0.4 % Immature Granulocyte # (Auto) 0.04 K/uL (0.00-0.02) Prothrombin Time 9.7 SECONDS (9.0-12.0) Prothromb Time International Ratio 0.9 (0.9-1.1) Activated Partial Thromboplast Time 25.4 SECONDS (21.0-31.0) Partial Thromboplastin Ratio 1.0 Anion Gap 5.0 mmol/L (3-11) Est Creatinine Clear Calc Drug Dose 73.1 ml/min Estimated GFR () 87.6 Estimated GFR (Non- 75.6 BUN/Creatinine Ratio 9.4 (10-20) Calcium Level 9.1 mg/dl (8.5-10.1) Total Bilirubin 0.2 mg/dl (0.2-1) Direct Bilirubin < 0.1 mg/dl (0-0.2) Aspartate Amino Transf (AST/SGOT) 19 U/L (15-37) Alanine Aminotransferase (ALT/SGPT) 25 U/L (12-78) Alkaline Phosphatase 145 U/L (45-117) Total Creatine Kinase 59 U/L (26-192) Creatine Kinase MB 0.7 ng/ml (0.5-3.6) Creatine Kinase MB Ratio 1.2 (0-3.0) Total Protein 7.2 gm/dl (6.4-8.2) Albumin 3.6 gm/dl (3.4-5.0) Lipase 211 U/L (73-393) Bedside D-Dimer 258 ng/mlFEU (0-450) Bedside Troponin I < 0.030 ng/ml (0-0.045) Laboratory studies as stated above per my review. Medications Administered Medications (Trade) Dose Ordered Sig/Julian Route Start Time Stop Time Status Last Admin Dose Admin Ondansetron HCl (Zofran Inj) 4 mg NOW STAT IV 02/06/17 21:05 02/06/17 21:07 DC 02/06/17 21:21 4 MG Morphine Sulfate (MoRPHine SULFATE INJ) 4 mg NOW STAT IV 02/06/17 21:05 02/06/17 21:07 DC 02/06/17 21:22 4 MG Morphine Sulfate (MoRPHine SULFATE INJ) 4 mg NOW STAT IV 02/06/17 22:12 02/06/17 22:13 DC 02/06/17 22:21 4 MG ECG Indication: chest pain Rate (beats per minute): 88 Rhythm: normal sinus Findings: no acute ischemic change, no ectopy, other (poor baseline, low voltage) Comparison ECG Date: 23-Oct-2016 Change: no significant change ED Course 2100: Past medical records reviewed. The patient was evaluated in room B3B, and a complete history and physical examination were performed. 2104: Morphine Sulfate 4 mg IV, Zofran Inj 4 mg IV. 2206: Upon reevaluation, the patient is feeling better. I discussed the results and treatment plan with her. She verbalized agreement of the treatment plan. The patient was discharged home. 2211: Morphine Sulfate 4 mg IV. Medical Decision Differentials include, but are not limited to; ACS, arrhythmia, PE, pneumonia, costochondritis, pneumothorax, fibromyalgia. This patient comes in as described above. She was placed in room B3. She's having chest pain that is left-sided. It is reproducible. She's been having this off and on for several months. She had a negative stress test at the end of September. IV access was established and she was given morphine 4 mg IV and Zofran 4 mg IV for pain and nausea management. Multiple blood testing was obtained. Chest x-ray does not show any findings to suggest congestive heart failure, pneumonia, or pneumothorax. EKG does not show any definite acute ischemic changes. Troponin is negative. D-dimer is negative and in the low pretest probably setting makes PE highly unlikely. The pain is definitely reproducible. She feels a lot better after having the morphine she was given additional dose of IV morphine. She is on fentanyl patches as well as oral narcotics at home which she can continue and she takes is for chronic pain in her back. She has no acute electrolyte or metabolic abnormalities. I think this is more of a costochondritis is is definitely reproducible. She will be discharged home. She'll return if : increasing pain, worsening of symptoms, fever or chills, any new problems or concerns. She is happy with plan and discharged to home. Medication Reconcilliation Current Medication List: was personally reviewed by me Blood Pressure Screening Patient's blood pressure: Normal blood pressure Blood pressure disposition: Did not require urgent referral Impression Primary Impression: Left sided chest pain Additional Impression: Costochondritis Scribe Attestation The scribe's documentation has been prepared under my direction and personally reviewed by me in its entirety. I confirm that the note above accurately reflects all work, treatment, procedures, and medical decision making performed by me. Departure Information Dispostion Home / Self-Care Referrals Isa Garcia, C.R.N.P (PCP) Forms Call Back Authorization, HOME CARE DOCUMENTATION FORM, IMPORTANT VISIT INFORMATION Patient Instructions My [facility] Additional Instructions Rest. Drink plenty of fluids. Continue current pain medications Use Aleve if you can take it. Do not exceed the [id number] recommended dosages Return if: Worsening of symptoms, shortness of breath, increasing pain, fever or chills, any new problems or concerns. Follow-up with your doctor Wednesday for recheck Problem Qualifiers
[2017-02-06 22:22] VITALS: BP 145/77; PULSE 80; TEMP 36.7; O2SAT 95
== END 2017-02-06 22:27 | disposition home or self-care (01) ==
LOC: C.EDB 20:49
DX: R07.9 Chest pain, unspecified (principal); M94.0 Chondrocostal junction syndrome [Tietze]; M79.7 Fibromyalgia; E11.9 Type 2 diabetes mellitus without complications; Z82.49 Family history of ischemic heart disease and other diseases of the circulatory system; F17.200 Nicotine dependence, unspecified, uncomplicated

== ENCOUNTER → 2017-02-17 | Outpatient (CLI) | payer OTHER ==
[~2017-02-17] MED LIST changes: -AMIT75TA2 PO; +AMT/50 PO; +LAMO1TAB21 PO; +PANT40TA2 PO; -PRT/40 PO
[2017-02-17 13:46] LABS: LYME DISEASE AB IGG NEG (NEG)
[2017-02-17 13:47] LABS: LYME DISEASE AB IGM NEG (NEG)
[2017-02-17 13:58] LABS: BLOOD UREA NITROGEN 15 mg/dl (7-18); BUN/CREATININE RATIO 17.8 (10-20); CALCIUM 9.4 mg/dl (8.5-10.1); CARBON DIOXIDE 26 mmol/L (21-32); CHLORIDE 108 mmol/L (98-107); CHOLESTEROL 244 mg/dl (0-200); CREATININE 0.85 mg/dl (0.60-1.20); GLUCOSE 93 mg/dl (70-99); POTASSIUM 4.1 mmol/L (3.5-5.1); SODIUM 141 mmol/L (136-145); TRIGLYCERIDES 155 mg/dl (0-150); VERY LOW DENSITY LIPOPROT CALC 31 mg/dl
[2017-02-17 14:09] LABS: HDL CHOLESTEROL 61 mg/dl; LDL CHOLESTEROL CALCULATED 152 mg/dl
== END | disposition home or self-care (01) ==
LOC: C.LABPVFM 09:56
PROVIDERS: ATTEND Nurse Practitioner
DX: E55.9 Vitamin D deficiency, unspecified (principal); R20.0 Anesthesia of skin; R63.5 Abnormal weight gain; M79.1 Myalgia; M79.669 Pain in unspecified lower leg; R53.83 Other fatigue; E78.5 Hyperlipidemia, unspecified

== ENCOUNTER 2017-07-02 18:31 | Emergency (ER) | payer OTHER ==
[~2017-07-02] VITALS: Ht 162.6 cm; Wt 70.0 kg
[~2017-07-02 18:31] MED LIST changes: -LAMO1TAB21 PO; -LPT/20 PO; +LPT20 PO
[2017-07-02 18:33] VITALS: TEMP 37.1; Ht 162.6 cm; Wt 70.0 kg
[2017-07-02] MEDS ORDERED: SODIUM CHLORIDE 0.9% 1000ML 1,000 ML IV STA (19:00)
[2017-07-02] MEDS ORDERED: DiphenhydrAMINE HCL 50 MG/ML VIAL IV STA (19:00)
[2017-07-02] MEDS ORDERED: ACETAMINOPHEN IV 1,000 MG in EMPTY BAG 0 ML IV STA (19:00)
[2017-07-02] MEDS ORDERED: PROCHLORPERAZINE 5 MG/ML 2 ML VIAL IV STA (19:00)
--- NOTE | 2017-07-02 19:13 | EMERGENCY ROOM VISIT NOTE ---
History Report prepared by Shagufta: Ancelmo Yang Under the Supervision of: Dr. Cleopatra Alfredo D.O. First contact with patient: 18:40 Chief Complaint: NEURO SYMPTOMS Stated Complaint: RT SIDE NUMBNESS, NECK PAIN, SEVERE MIGRAINE Nursing Triage Summary: patient with severe head ache and numbness and tingling of the right side. with right sided weaknss and falls today. History of Present Illness The patient is a 51 year old female who presents to the Emergency Room with complaints of constant right sided numbness and weakness which began today at 1100. The patient reports feeling very groggy when she woke up this morning, after which she went back to sleep. She notes that she went back to sleep and woke up again at 1100 when she began to feel right sided numbness in her arm and leg. The patient reports that she fell three times secondary to her numbness and weakness. Denies injury, stating the first episode was a slow collapse without injury and the other ones her caught her. She notes that her symptoms began just prior to her first fall, and did not resolve between episodes. They are however improved when laying down. The patient states that she developed neck pain and a pounding headache after her right sided weakness and numbness began. The patient reports that she currently experiences a tingling sensation on her right side when laying down, but numbness on her right side while standing. She also notes being less sensitive to touch on her right side. The patient reports having a history of migraines, but does not feel that her present symptoms are related to a migraine. She notes that her migraines are generally localize to the back of her head, however , this pain is mainly confined to the top of her head. She also notes that her migraines typically last for several days. The patient reports that she takes Maxalt and Clonidine to suppress her migraine symptoms. The patient notes a history of pinched nerves in her neck and back, but states that she has never experienced numbness like this in the past. She states that her numbness generally only arises when she overexerts herself, however, she notes that even this numbness is nowhere close to as severe as her present symptoms. The patient reports experiencing chills throughout the day today and also notes experiencing resolve right sided facial weakness several days ago. She denies any stomach pain, recent illness, history of diabetes, history of hypertension, change in her bowel movements, or falls prior to today. The patient reports that she has had several MRIs conducted in the past which revealed concerns for multiple sclerosis. Following her MRI the patient had a spinal tap performed which came back negative for multiple sclerosis. The patient notes that she recently had her medications changed from amitriptyline to Cymbalta. She also notes that she uses a fentanyl patch and oxycodone for sinclair management. Source of History: patient Onset: Today at 1100 Position: arm (right), leg (right) Quality: numbness (and weakness) Timing: constant Modifying Factors (Worsening): other (standing) Modifying Factors (Relieving): rest Associated Symptoms: + chills, + headache, + neck pain, + fatigue, No abdominal pain Note: Associated Symptoms: Falling, tingling while lying down, Denies: Recent illness, history of diabetes, history of hypertension, change in bowel movements, falls prior to today. Review of Systems See HPI for pertinent positives & negatives. A total of 10 systems reviewed and were otherwise negative. Past Medical & Surgical Medical Problems: (1) Chest pain (2) Fibromyalgia Surgical Problems: (1) S/P hysterectomy (2) S/P tubal ligation Family History Cancer Diabetes mellitus FH: atrial fibrillation FHx: gallbladder disease FHx: lung disease Hypertension Kidney disease Mitral valve prolapse Social History Smoking Status: Current Every Day Smoker Alcohol Use: none Drug Use: other Marital Status: Housing Status: lives with family Occupation Status: unemployed Current/Historical Medications Scheduled Atorvastatin (Lipitor), 20 MG PO QPM Baclofen (Lioresal), 10 MG PO BID Cholecalciferol (Vitamin D), 2,000 INTER.UNIT PO QAM Clonazepam (Clonazepam), 1 MG PO HS Duloxetine HCl (Duloxetine HCl), 30 MG PO DAILY Fentanyl (Fentanyl), 25 MCG TOP [id number] Lamotrigine (Lamotrigine), 100 MG PO BID Pantoprazole (Pantoprazole Sodium), 40 MG PO QPM Sertraline HCl (Sertraline HCl), 250 MG PO HS Scheduled PRN Albuterol Hfa (Ventolin Hfa), 2 PUFFS INH Q6H PRN for SOB/Wheezing Oxycodone Hcl (Oxycodone Hcl), 10 MG PO QID PRN for Pain Rizatriptan Benzoate (Rizatriptan Benzoate), 10 MG PO UD PRN for Migraine Allergies Coded Allergies: Chlorhexidine (Verified Allergy, Intermediate, rash, 10/22/16) Gabapentin (Verified Allergy, Intermediate, SWELLS UP ALL OVER MANILY LEGS AND HANDS, 10/22/16) Topiramate (Verified Allergy, Intermediate, KIDNEY STONES, 10/22/16) Aspirin (Verified Allergy, Mild, HIVES, 10/22/16) Cephalexin (Verified Adverse Reaction, Mild, NAUSEA AND VOMITING, 10/22/16) Ibuprofen (Verified Adverse Reaction, Mild, DIARRHEA, 10/22/16) Metronidazole (Verified Adverse Reaction, Mild, VOMITING, 10/22/16) Physical Exam Vital Signs Date Time Temp Pulse Resp B/P (MAP) Pulse Ox O2 Delivery O2 Flow Rate FiO2 07/02/17 23:30 60 18 111/71 98 07/02/17 22:44 66 18 97 Room Air 07/02/17 21:05 88 18 118/68 96 Room Air 07/02/17 18:33 37.1 84 20 156/95 98 Room Air Physical Exam GENERAL: alert, well appearing, well nourished, no distress, non-toxic EYE EXAM: normal conjunctiva, PERRL and EOM's grossly intact OROPHARYNX: no exudate, no erythema, lips, buccal mucosa, and tongue normal and mucous membranes are moist NECK: supple, no nuchal rigidity, no adenopathy, non-tender LUNGS: Clear to auscultation. Normal chest wall mechanics. Decreased breath sounds, no wheezes, rhonchi, or rales. HEART: no murmurs, S1 normal and S2 normal ABDOMEN: abdomen soft, non-tender, normo-active bowel sounds, no masses, no rebound or guarding. BACK: Back is symmetrical on inspection and there is no deformity, no midline tenderness, no CVA tenderness. SKIN: no rashes and no bruising UPPER EXTREMITIES: upper extremities are grossly normal. LOWER EXTREMITIES: No pitting edema. NEURO EXAM: Subjective sensory alteration to right upper extremity and right lower extremity. No pronator drift. Could not complete finger to nose. Slight ataxia noted on both upper and lower. Decreased strength right upper extremity. Medical Decision & Procedures ER Provider Diagnostic Interpretation: Radiology results have been interpreted by the radiologist and reviewed by me. CHEST ONE VIEW PORTABLE CLINICAL HISTORY: Stroke like symptoms COMPARISON STUDY: 02/06/2017 FINDINGS: The heart is at the upper limits of normal in size. There is no failure. There is no focal pulmonary consolidation. There are no pleural effusions.[ IMPRESSION: No active disease in the chest. Electronically signed by: Cristopher Hernández M.D. 07/02/2017 7:23 PM Dictated Date/Time: 07/02/2017 7:23 PM MRI CERVICAL WITHOUT CONTRAST CLINICAL HISTORY: Neck pain and right-sided paresthesias TECHNIQUE: Sagittal and axial T1, T2 and STIR images were obtained. COMPARISON STUDY: March 2014 There are no suspicious areas of marrow replacement. No intrinsic cervical cord lesions are visualized. C2-3: There is no evidence of disc bulge or focal herniation. There is no spinal or foraminal stenosis. C3-4: There is a minimal circumferential disc bulge. There is no significant spinal or foraminal stenosis C4-5: There is a minimal circumferential disc bulge. There is no significant spinal or foraminal stenosis C5-6 :There is a minimal circumferential disc bulge. There is no significant spinal or foraminal stenosis C6-7: There is a minor circumferential disc bulge. There is no significant spinal or foraminal stenosis C7-T1: There is no evidence of disc bulge or focal herniation. There is no evidence of spinal or foraminal stenosis. IMPRESSION: 1. No significant change from the prior study 2. Minor multilevel disc bulges. No evidence of significant spinal or foraminal stenosis 3. No cord abnormalities identified Electronically signed by: Cristopher Hernández M.D. 07/02/2017 9:12 PM Dictated Date/Time: 07/02/2017 9:09 PM MRI OF THE BRAIN WITHOUT CONTRAST CLINICAL HISTORY: Headache, right-sided paresthesias, weakness, neck pain. COMPARISON STUDY: June 2013 FINDINGS: Sagittal T1, axial diffusion, proton density and T2 weighted axial, coronal FLAIR, and axial T1-weighted images were acquired. No intra or extra-axial mass lesions are visualized Axial diffusion-weighted images reveal no evidence of acute or subacute infarction. There is no evidence of ventricular dilatation. Proton density T2-weighted and FLAIR images reveal multiple foci of abnormal increased T2 and FLAIR signal within the white matter. These are greater than expected for age, and raise the possibility of age accelerated small vessel ischemic disease, vasculitis, or demyelinating disease. There are no abnormal flow voids. IMPRESSION: 1. No acute intracranial findings 2. No evidence of acute or subacute infarction 3. Persistent foci of abnormal increased T2 and FLAIR signal within the white matter, greater than expected for age. This again raises the possibility of age accelerated small vessel ischemic disease, vasculitis, or demyelinating disease. Electronically signed by: Cristopher Hernández M.D. 07/02/2017 8:44 PM Dictated Date/Time: 07/02/2017 8:40 PM Laboratory Results 07/02/17 19:15 Red Blood Count 4.38, Mean Corpuscular Volume 91.1, Mean Corpuscular Hemoglobin 31.1, Mean Corpuscular Hemoglobin Concent 34.1, Mean Platelet Volume 10.2, Neutrophils (%) (Auto) 50.1, Lymphocytes (%) (Auto) 33.1, Monocytes (%) (Auto) 11.9, Eosinophils (%) (Auto) 4.0, Basophils (%) (Auto) 0.8, Neutrophils # (Auto ) 3.96, Lymphocytes # (Auto) 2.62, Monocytes # (Auto) 0.94, Eosinophils # (Auto ) 0.32, Basophils # (Auto) 0.06 07/02/17 19:15 Test 07/02/17 19:15 White Blood Count 7.91 K/uL (4.8-10.8) Red Blood Count 4.38 M/uL (4.2-5.4) Hemoglobin 13.6 g/dL (12.0-16.0) Hematocrit 39.9 % (37-47) Mean Corpuscular Volume 91.1 fL (80-100) Mean Corpuscular Hemoglobin 31.1 pg (25-34) Mean Corpuscular Hemoglobin Concent 34.1 g/dl (32-36) Platelet Count 199 K/uL (130-400) Mean Platelet Volume 10.2 fL (7.4-10.4) Neutrophils (%) (Auto) 50.1 % Lymphocytes (%) (Auto) 33.1 % Monocytes (%) (Auto) 11.9 % Eosinophils (%) (Auto) 4.0 % Basophils (%) (Auto) 0.8 % Neutrophils # (Auto) 3.96 K/uL (1.4-6.5) Lymphocytes # (Auto) 2.62 K/uL (1.2-3.4) Monocytes # (Auto) 0.94 K/uL (0.11-0.59) Eosinophils # (Auto) 0.32 K/uL (0-0.5) Basophils # (Auto) 0.06 K/uL (0-0.2) RDW Standard Deviation 44.3 fL (36.4-46.3) RDW Coefficient of Variation 13.3 % (11.5-14.5) Immature Granulocyte % (Auto) 0.1 % Immature Granulocyte # (Auto) 0.01 K/uL (0.00-0.02) Prothrombin Time 10.4 SECONDS (9.0-12.0) Prothromb Time International Ratio 1.0 (0.9-1.1) Anion Gap 4.0 mmol/L (3-11) Est Creatinine Clear Calc Drug Dose 77.9 ml/min Estimated GFR () 95.3 Estimated GFR (Non- 82.2 BUN/Creatinine Ratio 11.7 (10-20) Calcium Level 8.7 mg/dl (8.5-10.1) Magnesium Level 2.2 mg/dl (1.8-2.4) Total Bilirubin 0.2 mg/dl (0.2-1) Aspartate Amino Transf (AST/SGOT) 13 U/L (15-37) Alanine Aminotransferase (ALT/SGPT) 15 U/L (12-78) Alkaline Phosphatase 110 U/L (45-117) Troponin I < 0.015 ng/ml (0-0.045) Total Protein 6.9 gm/dl (6.4-8.2) Albumin 3.6 gm/dl (3.4-5.0) Globulin 3.3 gm/dl (2.5-4.0) Albumin/Globulin Ratio 1.1 (0.9-2) Lyme Disease IgG Antibody NEG (NEG) Lyme Disease IgM Antibody NEG (NEG) Laboratory results per my review. Medications Administered Medications (Trade) Dose Ordered Sig/Julian Route Start Time Stop Time Status Last Admin Dose Admin Sodium Chloride 1,000 ml @ 999 mls/hr Q1H1M STAT IV 07/02/17 19:00 07/02/17 20:00 DC 07/02/17 19:26 999 MLS/HR Prochlorperazine Edisylate (Compazine Inj) 5 mg NOW STAT IV 07/02/17 19:00 07/02/17 19:12 DC 07/02/17 19:26 5 MG Diphenhydramine HCl (Benadryl Inj) 25 mg NOW STAT IV 07/02/17 19:00 07/02/17 19:12 DC 07/02/17 19:26 25 MG Dexamethasone Sodium Phosphate (Decadron Inj) 10 mg NOW STAT IV 07/02/17 21:32 07/02/17 21:33 DC 07/02/17 21:51 10 MG Lorazepam (Ativan Inj) 1 mg NOW STAT IV 07/02/17 21:32 07/02/17 21:33 DC 07/02/17 21:51 1 MG Sertraline HCl (Zoloft Tab) 250 mg NOW STAT PO 07/02/17 22:05 07/02/17 22:09 DC 07/02/17 22:22 250 MG Baclofen (Lioresal Tab) 10 mg NOW STAT PO 07/02/17 22:05 07/02/17 22:09 DC 07/02/17 22:21 10 MG Lamotrigine (Lamictal Tab) 100 mg NOW STAT PO 07/02/17 22:05 07/02/17 22:09 DC 07/02/17 22:21 100 MG Oxycodone HCl (Roxicodone Immediate Rel Tab) 10 mg NOW STAT PO 07/02/17 22:05 07/02/17 22:09 DC 07/02/17 22:21 10 MG ECG Per My Interpretation Indication: weakness Rate (beats per minute): 70 Rhythm: normal sinus Findings: RBBB (incomplete), no acute ischemic change, no ectopy, other ( normal axis, normal intervals) ED Course 1844: The patient was evaluated in room B4. A complete history and physical exam was performed. 1899: Ordered Acetaminophen 100ml @ 400mls/hr, Benadryl Inj 25mg IV, Compazine Inj 5mg IV, and Sodium Chloride 1000 ml @ 999 mls/hr IV. 2009: Patient states headache is only slightly improved and still present, however neck and back pain are improved. 2131: Ordered Ativan Inj 1 mg IV, and Decadron Inj 10 mg IV. 2199: Patient concerned about missing her nighttime medications. Patient states feeling markedly improved except for residual headache. Patient would like to go home and sleep. No back pain, no neck pain, normal neuro exam at this time, mild residual photophobia. 2204: Ordered Oxycodone HCl 10mg PO, Lamictal Tab 100mg PO, Lioresal Tab 10 mg PO, and Zoloft Tab 250 mg PO. Medical Decision Differential diagnosis: Etiologies such as migraine headache, meningitis, sinusitis, CO exposure, ICH, SAH, infection, tumor, headache, sinus thrombosis, arterial dissection, as well as others were entertained. Patient with paresthesias and slight weakness for 8 hours by time of presentation here. NIH stroke score less than 4 and outside window for any acute intervention. I had a low suspicion for stroke despite patient's risk factors. I think given history of peripheral nerve impingement, neck and back problems, as well as migraines, more likely be related to a complex migraine, or peripheral nerve impingement related to symptoms. Discussed imaging with radiology prior to ordering to discuss my differential diagnosis and patient presentation. Imaging here reassuring. Patient felt improved following medications. Back pain gone, no residual paresthesias or weakness, neck pain improved, and headache improved although still present. Patient able to ambulate here with a steady gait and did not require assistance. Patient does have a neurologist whom she follows with a advised close follow-up with him. Advised continued use of her routine medications. I do not suspect other vascular etiology including dissection. No symptoms to otherwise suggest acute spinal emergency including cauda equina, epidural abscess or epidural hematoma. Headache was gradual in onset, not the worst headache of her life, no accompanying fevers or other infectious etiology, so I do not feel patient warranted lumbar puncture to rule out subarachnoid hemorrhage or meningitis. Patient and family aware of her results, verbalized understanding, were agreeable with plan, and comfortable plan for discharge. All questions answered at bedside. Labs otherwise reassuring, I do not suspect other occult infectious etiology or cardiac etiology. I do not suspect occult traumatic injury related to the subsequent falls from her numbness and weakness today. Medication Reconcilliation Current Medication List: was personally reviewed by me Blood Pressure Screening Patient's blood pressure: Normal blood pressure Impression Primary Impression: Paresthesia Additional Impressions: Neck pain Headache Scribe Attestation The scribe's documentation has been prepared under my direction and personally reviewed by me in its entirety. I confirm that the note above accurately reflects all work, treatment, procedures, and medical decision making performed by me. Departure Information Dispostion Home / Self-Care Referrals Isa Garcia C.R.N.P (PCP) Forms HOME CARE DOCUMENTATION FORM, IMPORTANT VISIT INFORMATION, WORK / SCHOOL INSTRUCTIONS Patient Instructions My [facility] Additional Instructions Please call and follow-up with your neurologist. Please continue your regular medications as prescribed. If you have any worsening symptoms, atypical headaches, recurrent numbness or weakness, recurrent fall, or you have any other new concerns, please return to the emergency room. Problem Qualifiers Additional Impressions: Headache Headache type: unspecified Headache chronicity pattern: episodic headache Intractability: not intractable Qualified Codes: R51 - Headache
--- NOTE | 2017-07-02 19:25 | DIAGNOSTIC IMAGING REPORT ---
CHEST ONE VIEW PORTABLE CLINICAL HISTORY: Stroke like symptoms COMPARISON STUDY: 02/06/2017 FINDINGS: The heart is at the upper limits of normal in size. There is no failure. There is no focal pulmonary consolidation. There are no pleural effusions.[ IMPRESSION: No active disease in the chest. Electronically signed by: Cristopher Hernández M.D. 07/02/2017 7:23 PM Dictated Date/Time: 07/02/2017 7:23 PM
[2017-07-02 19:36] LABS: BASO % 0.8 %; BASO ABS # 0.06 K/uL (0-0.2); EOS ABS # 0.32 K/uL (0-0.5); HEMATOCRIT 39.9 % (37-47); HEMOGLOBIN 13.6 g/dL (12.0-16.0); IG# 0.01 K/uL (0.00-0.02); LYMPH % 33.1 %; LYMPH ABS # 2.62 K/uL (1.2-3.4); MEAN CELL VOLUME 91.1 fL (80-100); MEAN CORPUSCULAR HEMOGLOBIN 31.1 pg (25-34); MEAN CORPUSCULAR HGB CONC 34.1 g/dl (32-36); MEAN PLATELET VOLUME 10.2 fL (7.4-10.4); MONO % 11.9 %; MONO ABS # 0.94 K/uL (0.11-0.59); NEUT % 50.1 %; NEUT ABS # 3.96 K/uL (1.4-6.5); PLATELET COUNT 199 K/uL (130-400); RED CELL DISTRIBUTION WIDTH CV 13.3 % (11.5-14.5); RED CELL DISTRIBUTION WIDTH SD 44.3 fL (36.4-46.3); WHITE BLOOD COUNT 7.91 K/uL (4.8-10.8)
[2017-07-02 19:53] LABS: ALBUMIN 3.6 gm/dl (3.4-5.0); ALT/SGPT 15 U/L (12-78); BLOOD UREA NITROGEN 10 mg/dl (7-18); CALCIUM 8.7 mg/dl (8.5-10.1); CARBON DIOXIDE 29 mmol/L (21-32); CREATININE 0.83 mg/dl (0.60-1.20); GLUCOSE 93 mg/dl (70-99); POTASSIUM 3.5 mmol/L (3.5-5.1); SODIUM 140 mmol/L (136-145)
[2017-07-02 19:58] LABS: ALKALINE PHOSPHATASE 110 U/L (45-117); AST/SGOT 13 U/L (15-37); TOTAL PROTEIN 6.9 gm/dl (6.4-8.2)
--- NOTE | 2017-07-02 20:45 | DIAGNOSTIC IMAGING REPORT ---
MRI OF THE BRAIN WITHOUT CONTRAST CLINICAL HISTORY: Headache, right-sided paresthesias, weakness, neck pain. COMPARISON STUDY: June 2013 FINDINGS: Sagittal T1, axial diffusion, proton density and T2 weighted axial, coronal FLAIR, and axial T1-weighted images were acquired. No intra or extra-axial mass lesions are visualized Axial diffusion-weighted images reveal no evidence of acute or subacute infarction. There is no evidence of ventricular dilatation. Proton density T2-weighted and FLAIR images reveal multiple foci of abnormal increased T2 and FLAIR signal within the white matter. These are greater than expected for age, and raise the possibility of age accelerated small vessel ischemic disease, vasculitis, or demyelinating disease. There are no abnormal flow voids. IMPRESSION: 1. No acute intracranial findings 2. No evidence of acute or subacute infarction 3. Persistent foci of abnormal increased T2 and FLAIR signal within the white matter, greater than expected for age. This again raises the possibility of age accelerated small vessel ischemic disease, vasculitis, or demyelinating disease. Electronically signed by: Cristopher Hernández M.D. 07/02/2017 8:44 PM Dictated Date/Time: 07/02/2017 8:40 PM
--- NOTE | 2017-07-02 21:14 | DIAGNOSTIC IMAGING REPORT ---
MRI CERVICAL WITHOUT CONTRAST CLINICAL HISTORY: Neck pain and right-sided paresthesias TECHNIQUE: Sagittal and axial T1, T2 and STIR images were obtained. COMPARISON STUDY: March 2014 There are no suspicious areas of marrow replacement. No intrinsic cervical cord lesions are visualized. C2-3: There is no evidence of disc bulge or focal herniation. There is no spinal or foraminal stenosis. C3-4: There is a minimal circumferential disc bulge. There is no significant spinal or foraminal stenosis C4-5: There is a minimal circumferential disc bulge. There is no significant spinal or foraminal stenosis C5-6 :There is a minimal circumferential disc bulge. There is no significant spinal or foraminal stenosis C6-7: There is a minor circumferential disc bulge. There is no significant spinal or foraminal stenosis C7-T1: There is no evidence of disc bulge or focal herniation. There is no evidence of spinal or foraminal stenosis. IMPRESSION: 1. No significant change from the prior study 2. Minor multilevel disc bulges. No evidence of significant spinal or foraminal stenosis 3. No cord abnormalities identified Electronically signed by: Cristopher Hernández M.D. 07/02/2017 9:12 PM Dictated Date/Time: 07/02/2017 9:09 PM
[2017-07-02] MEDS ORDERED: DEXAMETHASONE SOD INJ 4 MG/ML VIAL IV STA (21:32)
[2017-07-02] MEDS ORDERED: LORAZEPAM 2 MG/ML 1 ML VIAL IV STA (21:32)
[2017-07-02] MEDS ORDERED: LAMO1TAB21 PO (21:38)
[2017-07-02] MEDS ORDERED: OXYC-164 PO (21:53)
[2017-07-02] MEDS ORDERED: ATOR-22 PO (21:53)
[2017-07-02] MEDS ORDERED: CYM30 PO (21:53)
[2017-07-02] MEDS ORDERED: RIZA10TA21 PO (21:53)
[2017-07-02] MEDS ORDERED: SERTRALINE HCL 100 MG TAB PO STA (22:05)
[2017-07-02] MEDS ORDERED: BACLOFEN 10 MG TAB PO STA (22:05)
[2017-07-02] MEDS ORDERED: OXYCODONE HCL IR 5 MG TAB (IMMEDIATE RELEASE) PO STA (22:05)
[2017-07-02 23:30] VITALS: BP 111/71; PULSE 60; O2SAT 98
== END 2017-07-02 23:30 | disposition home or self-care (01) ==
LOC: C.EDB 18:32
DX: R20.2 Paresthesia of skin (principal); M54.2 Cervicalgia; R51 Headache; M79.7 Fibromyalgia; F17.200 Nicotine dependence, unspecified, uncomplicated; Z90.710 Acquired absence of both cervix and uterus; Z98.51 Tubal ligation status; Z83.3 Family history of diabetes mellitus; Z82.49 Family history of ischemic heart disease and other diseases of the circulatory system; Z88.8 Allergy status to other drugs, medicaments and biological substances; Z88.6 Allergy status to analgesic agent; Z88.1 Allergy status to other antibiotic agents; I45.10 Unspecified right bundle-branch block

== ENCOUNTER → 2017-07-12 | Outpatient (CLI) | payer OTHER ==
[~2017-07-12] MED LIST changes: -AMT/50 PO; +ATOR-22 PO; +CYM30 PO; +LAMO1TAB21 PO; -LPT20 PO; +OXYC-164 PO; -OXYC1TAB3 PO; -RIZA10TA18 PO; +RIZA10TA21 PO
--- NOTE | 2017-07-12 14:30 | DIAGNOSTIC IMAGING REPORT ---
LUMBAR SPINE 5 VIEWS HISTORY: Back pain. COMPARISON: Lumbar spine 07/05/2014. FINDINGS: There is no fracture. No subluxation. Mild disc space narrowing at L3-L4 with small endplate osteophytes. There is also mild disc space narrowing L5-S1. This is similar to the prior study. IMPRESSION: No fracture or subluxation within the lumbar spine. Mild degenerative disc disease at L3-L4 and L5-S1. Electronically signed by: Danis Casas M.D. 07/12/2017 2:29 PM Dictated Date/Time: 07/12/2017 2:24 PM
--- NOTE | 2017-07-12 14:31 | DIAGNOSTIC IMAGING REPORT ---
C-SPINE ROUTINE 4 OR 5 VIEWS HISTORY: Pain. Neuropathy. Carpal tunnel syndrome COMPARISON: 07/05/2014 FINDINGS: The cervical spine is visualized from C1 through the superior endplate of T1. There is no fracture. The subluxation produces described is no longer apparent. Findings of degenerative disc change C5-C6 with posterior osteophytic formation. Moderate degenerative disc change C5-C6. Prevertebral soft tissues and the atlantodens interval are intact. IMPRESSION: 1. Moderate degenerative disc change C5-C6 with a subluxation previously described no longer apparent. Alignment is anatomic. The above report was generated using voice recognition software. It may contain grammatical, syntax or spelling errors. Electronically signed by: Keron Shannon M.D. 07/12/2017 2:29 PM Dictated Date/Time: 07/12/2017 2:28 PM
== END | disposition home or self-care (01) ==
LOC: C.RADPV 13:53
PROVIDERS: ATTEND Psychiatry & Neurology Neurology
DX: G56.00 Carpal tunnel syndrome, unspecified upper limb (principal)

== ENCOUNTER → 2017-08-20 | Day surgery (SDC) | payer OTHER ==
[2017-08-20] VITALS (10 sets, daily range): BP systolic 90–130; BP diastolic 50–80; PULSE 60–84; TEMP 36.7–37.3; O2SAT 94–96; Ht 162.6 cm; Wt 69.0 kg
[~2017-08-20] VITALS: Ht 162.6 cm; Wt 69.0 kg
[~2017-08-20] MED LIST changes: +ACETAMINOPHEN 500 MG TAB PO PRN; +DIAZEPAM 5MG TAB ONE; +FENTANYL CITRATE INJ 50 MCG/1 ML 2 ML VIAL ONE; +LIDOCAINE HCL 2% 2 ML VIAL (20MG/ML) ONE; +MIDAZOLAM HCL 1 MG/ML 2ML VIAL ONE; +NURSING VERBAL MED ORDER ONE; +PROPOFOL IV EMULSION 10 MG/ML 20 ML VIAL IV ONE
--- NOTE | 2017-08-20 10:58 | Discharge Instructions ---
Discharge Instructions Procedure Procedure Date: Aug 20, 2017. Reason for visit: *W/Opening Pressure* Demyelinating Disorder. Discharge Discharge Date: Aug 20, 2017. Discharge Diagnosis: SAME Instructions Activity Recommendations: No limitations, 1 Day-May resume regular activity Recommended Home Diet: Resume Previous Diet Provider Instructions: ACTIVITY RECOMMENDATIONS: * Rest today. * Resume regular activity in one day. MEDICATIONS: * May take Tylenol or Ibuprofen as needed for pain. DIET: * Resume previous diet. SPECIAL CARE INSTRUCTIONS: Call your doctor if: * Temperature above 101 degrees F. * Pain not relieved by pain medicine ordered. * Increased drainage or redness from incision. * Notify your doctor with any questions or concerns. Call your doctor or go to the nearest Emergency Department if you experience: * Increased chest pain or shortness of breath. FOLLOW UP VISIT: Follow-up with Referring Physician as scheduled. Allergies Coded Allergies: Chlorhexidine (Verified Allergy, Intermediate, rash, 08/20/17) Gabapentin (Verified Allergy, Intermediate, SWELLS UP ALL OVER MANILY LEGS AND HANDS, 08/20/17) Topiramate (Verified Allergy, Intermediate, KIDNEY STONES, 08/20/17) Aspirin (Verified Allergy, Mild, HIVES, 08/20/17) Cephalexin (Verified Adverse Reaction, Mild, NAUSEA AND VOMITING, 08/20/17) Ibuprofen (Verified Adverse Reaction, Mild, DIARRHEA, 08/20/17) Metronidazole (Verified Adverse Reaction, Mild, VOMITING, 08/20/17) [place] Recommendations: Call your doctor if: * Temperature above 101 degrees * Pain not relieved by pain medicine ordered * There is increased drainage or redness from any incision * You have any unanswered questions or concerns. Your Doctors Instructions noted above were prepared by provider Paulie Nassar. Patient Signature Section: Patient Instructions Signature Page Nelly Flor Patient (or Guardian) Signature/Date: I have read and understand the instructions given to me by my caregivers. Caregiver/RN/Doctor Signature/Date: The above-named patient and/or guardian has received patient instructions on this date. + Original Patient Signature Page (only) stays with chart. Please make copy for patient.
--- NOTE | 2017-08-20 11:03 | DIAGNOSTIC IMAGING REPORT ---
LUMBAR PUNCTURE DIAGNOSTIC CLINICAL HISTORY: 52 years-old Female with numbness and falling. Acute strokelike symptoms. Concern for possible demyelinating disorder. PROCEDURE: The risks, benefits, and alternatives to the procedure is discussed with the patient who voiced understanding. Written informed consent was obtained. The patient was placed prone on the fluoroscopy table. The lower back was prepped and draped in the usual sterile fashion. 1% lidocaine was used for local anesthesia. A 20-gauge spinal needle was inserted into the L2-L3 interlaminar space, and approximately 9.5 mL of clear colorless cerebrospinal fluid was removed. The patient tolerated the procedure well. There were no immediate complications. The patient was then transported to the medical treatment unit for further observation. FLUOROSCOPY TIME: 0.3 minutes. One spot fluoroscopic image was obtained and submitted for review. IMPRESSION: Fluoroscopic guided lumbar puncture with removal of approximately 9.5 mL of cerebrospinal fluid. There were no immediate complications. The above report was generated using voice recognition software. It may contain grammatical, syntax or spelling errors. Electronically signed by: Kar Nassar M.D. 08/20/2017 11:01 AM Dictated Date/Time: 08/20/2017 11:00 AM
[2017-08-20 11:35] LABS: CSF GLUCOSE 55 mg/dl (40-70); CSF TOTAL PROTEIN 36.4 mg/dl (15.0-45.0)
== END | disposition home or self-care (01) ==
LOC: C.ACU 08:17
PROVIDERS: ATTEND Psychiatry & Neurology Neurology
DX: G37.9 Demyelinating disease of central nervous system, unspecified (principal)

== ENCOUNTER 2017-09-07 16:50 | Emergency (ER) | payer OTHER ==
[~2017-09-07] VITALS: Ht 162.6 cm; Wt 68.5 kg
[~2017-09-07 16:50] MED LIST changes: -ACETAMINOPHEN 500 MG TAB PO PRN; -CYM30 PO; -DIAZEPAM 5MG TAB ONE; -FENTANYL CITRATE INJ 50 MCG/1 ML 2 ML VIAL ONE; -LAMO1TAB21 PO; -LIDOCAINE HCL 2% 2 ML VIAL (20MG/ML) ONE; -MIDAZOLAM HCL 1 MG/ML 2ML VIAL ONE; -NURSING VERBAL MED ORDER ONE; -PROPOFOL IV EMULSION 10 MG/ML 20 ML VIAL IV ONE; -RIZA10TA21 PO
[2017-09-07 16:53] VITALS: TEMP 36.8; Ht 162.6 cm; Wt 68.5 kg
--- NOTE | 2017-09-07 17:17 | DIAGNOSTIC IMAGING REPORT ---
L ANKLE MIN 3 VIEWS ROUTINE HISTORY: 52 years-old Female L ankle pain acute left ankle pain COMPARISON: None available TECHNIQUE: 3 views of the left ankle FINDINGS: Mild marginal spurring about the tibiotalar joint. There is mild circumferential soft tissue swelling about the ankle without acute fracture or dislocation identified. Trace joint effusion. Prior subtalar joint fusion with cannulated screws traversing the posterior subtalar joint. No evidence of hardware complication or fracture. No opaque foreign body. IMPRESSION: 1. Mild soft tissue swelling about the ankle without acute fracture or dislocation. 2. Prior subtalar fusion without evidence of hardware complication. The above report was generated using voice recognition software. It may contain grammatical, syntax or spelling errors. Electronically signed by: Kar Nassar M.D. 09/07/2017 5:16 PM Dictated Date/Time: 09/07/2017 5:14 PM
[2017-09-07] MEDS ORDERED: OXYCODONE HCL IR 5 MG TAB (IMMEDIATE RELEASE) PO STA (17:40)
[2017-09-07] MEDS ORDERED: VERA1TAB52 PO (17:51)
[2017-09-07] MEDS ORDERED: LPT40 PO (17:51)
[2017-09-07 18:01] VITALS: BP 125/78; PULSE 78; O2SAT 98
[2017-09-07] MEDS ORDERED: LAMO1TAB21 PO (21:38)
--- NOTE | 2017-09-08 16:18 | EMERGENCY ROOM VISIT NOTE ---
ED Visit Note First contact with patient: 16:56 I Chief Complaint: Left ankle pain. History of Present Illness: Ms. Flor is a 52-year-old white female who is brought into the ED via wheelchair accompanied by family members complaining of left anterior ankle pain. Historically patient reports she has a talar dome fracture that required surgical subtalar fusion in 2012. She had no surgical complications from her surgery. Patient reports approximately 5 hours ago she was working in her yard and heard her phone ring. She reports she ran to the house to get the phone and tripped in a dog hole and injured her ankle. She is not exactly sure the mechanism of injury but reports since the event she has been having pain over the anterior talus. Currently she describes her pain as a sharp sensation with occasional throbbing. She rates her discomfort 7/10. She has minimal radiation of her pain superior over the distal tibia. She has not identified any alleviating factors related to the pain. She reports she has prescribed oxycodone and took 1 tablet shortly after the injury with no relief of her discomfort. She denies any associated symptoms including hip pain, knee pain, lower leg pain, calf pain , calcaneus pain, other foot pain, foot weakness/numbness/tingling. Review of Systems: As noted above in history of present illness. 5 body systems were reviewed and found to be negative as noted above. Past Medical History: As previously noted, unspecified skin disorder, asthma, bronchitis, pneumonia, unspecified gastrointestinal disorder, kidney stones, fibromyalgia, status post hysterectomy and tubal ligation. Current Medications: Medications Dose Route/Sig Max Daily Dose Days Date Category Dose Instructions Verapamil Hcl Er (Verapamil Hcl) 120 Mg Tab 120 Mg PO DAILY 09/07/17 Reported Lipitor (Atorvastatin Calcium) 40 Mg Tab 40 Mg PO QPM 09/07/17 Reported Oxycodone Hcl 10 Mg Tab 10 Mg PO TID PRN 07/02/17 Reported Lamotrigine 100 Mg Tab 100 Mg PO BID 02/06/17 Reported Ventolin Hfa (Albuterol) 200 Puffs/81992 Mcg Aers 2 Puffs INH Q6H PRN 10/22/16 Reported Fentanyl 25 Mcg Tdsy 25 Mcg TOP [id number] 10/22/16 Reported Lioresal (Baclofen) 10 Mg Tab 10 Mg PO BID 10/22/16 Reported Vitamin D (Cholecalciferol) 2,000 Unit Cap 2,000 Inter.unit PO QAM 04/09/15 Reported Pantoprazole Sodium (Pantoprazole) 40 Mg Tab 40 Mg PO QPM 07/17/14 Reported Sertraline HCl 100 Mg Tab 250 Mg PO HS 07/17/14 Reported Clonazepam 1 Mg Tab 1 Mg PO HS 07/17/14 Reported CAN HAVE 1 MORE DOSE DAILY PRN. Allergies to Medications: Aspirin, cephalexin, chlorhexidine, gabapentin, ibuprofen, metronidazole, topiramate. Social History: Patient is not employed; she feels safe in her home environment ; she admits to tobacco use and denies alcohol use Physical Examination: Vital Signs: Date Time Temp Pulse Resp B/P (MAP) Pulse Ox O2 Delivery O2 Flow Rate FiO2 09/07/17 18:01 78 16 125/78 98 Room Air 09/07/17 16:53 36.8 91 20 117/71 97 Room Air GENERAL: 52-year-old female in mild distress due to pain, nontoxic-appearing, afebrile and hemodynamically stable. NEUROLOGICAL: Awake, alert and oriented to person, place and time. Answering questions appropriately and following commands. Normal gait. Good hand eye coordination. No focal motor sensory deficits. SKIN: Warm, dry and pink. LEFT LOWER EXTREMITY: No gross bony deformity. No shortening or malrotation. No tenderness in the hip, thigh, knee, lower leg and foot. Mild tenderness over the anterior talar dome with minimal swelling but no bony deformity or crepitus. No tenderness over the lateral or medial malleoli. Decreased range of motion primarily in inversion and plantar flexion due to pain. No palpable ligamentous laxity. Throughout the foot the skin was warm and pink and capillary refill was brisk. He was able to distinguish light sensations to all dermatomes. ED Course: Patient is assessed as noted above. Patient's medication list was reviewed. Patient was given ice for pain and swelling. Left Ankle X-Rays: Was read by myself and the radiologist showing no acute fractures or dislocations. Mild soft tissue swelling was noted. Fusion hardware showed no evidence of disruption. Patient was given 5 mg OxyIR by mouth for pain. Patient was placed in a gel splint and on nonweightbearing crutches. Patient was educated about today's findings and instructed on her treatment plan ; she verbalized understanding and agreement with this plan. Just prior to discharge I was called back into the patient's room and she requested I provide her a prescription for NicoDerm so she may stop smoking. I complied with the patient's request. Clinical Impression: Left ankle pain. Disposition: Patient discharged home in stable condition; prior to departure she was reassessed and subjectively reported she was feeling slightly worse and rated her discomfort 8/10. Plan: Patient was encouraged to continue her current medications as prescribed. Patient was encouraged use ice for pain and swelling. Patient was encouraged to elevate her foot while at rest. Patient was instructed on splint and crutch use. Patient was encouraged to follow-up with orthopedics if no better in 6-7 days. Patient was encouraged return the ED for worsening pain, worsening swelling, ankle/foot weakness/numbness/tingling or any new/concerning symptoms.
== END 2017-09-07 18:03 | disposition home or self-care (01) ==
LOC: C.EDB 16:51 → C.EDD 18:03
DX: M25.572 Pain in left ankle and joints of left foot (principal); W18.42XA Slipping, tripping and stumbling without falling due to stepping into hole or opening, initial encounter; Y93.02 Activity, running; Y99.8 Other external cause status; J45.909 Unspecified asthma, uncomplicated; Z87.01 Personal history of pneumonia (recurrent); Z87.442 Personal history of urinary calculi; Z98.1 Arthrodesis status; Z90.710 Acquired absence of both cervix and uterus; Z98.51 Tubal ligation status; Z72.0 Tobacco use; Z88.6 Allergy status to analgesic agent; Z88.8 Allergy status to other drugs, medicaments and biological substances; Z79.899 Other long term (current) drug therapy

== ENCOUNTER → 2017-12-06 | Outpatient (CLI) | payer OTHER ==
[~2017-12-06] MED LIST changes: -ATOR-22 PO; +LAMO1TAB21 PO; +LPT40 PO; +ONDA4TAB10 SL; +VERA1TAB52 PO
== END | disposition home or self-care (01) ==
LOC: C.LABPVFM 15:52
PROVIDERS: ATTEND Nurse Practitioner
DX: J02.9 Acute pharyngitis, unspecified (principal)